=== PATIENT | male | born 1960 | race Caucasian/White ===

== ENCOUNTER 2020-08-28 14:29 | Emergency (ER) | payer BC ==
--- NOTE | 2020-08-28 16:05 | RAD REPORT ---
EXAM DESCRIPTION: RAD - Lumbar Spine 3 Views - 08/28/2020 3:57 pm CLINICAL HISTORY: PAIN Radiculopathy COMPARISON: No comparisons FINDINGS: Vertebral body heights appear maintained. No compression fracture noted. Mild disc thinnin g with small endplate osteophytes at L4-5 and L5-S1. No spondylolysis or spondylolisthesis. IMPRESSION: Mild lower lumbar spondylosis.
--- NOTE | 2020-08-28 16:59 | RAD REPORT ---
EXAM DESCRIPTION: CT - Spine Lumbar Wo Con - 08/28/2020 4:49 pm CLINICAL HISTORY: Radiculopathy. LOWER BACK PAIN COMPARISON: No comparisons TECHNIQUE: Axial noncontrast CT imaging of the lumbar spine was performed with coronal and sagittal re-formatted images. All CT scans are performed using dose optimization technique as appropriate and may include automated exposure control or mA/KV adjustment according to patient size. FINDINGS: No acute lumbar spine fracture seen. No aggressive marrow pattern or malalignment. Paraspinal tissues are normal in thickness. No paraspinal abscess or hematoma seen. Intervertebral disc disease assessment is inherently limited by CT. Within this limitation there is l ikely a disc herniation at L4-5. IMPRESSION: No acute finding evident. Probable herniated disc seen at L4-5. Followup nonemergent MRI imaging of the lumbar spine would be r ecommended.
[2020-08-28] MEDS ORDERED: methocarbamoL 500 MG TAB ONE (17:02)
[2020-08-28] MEDS ORDERED: HYDROCODONE/APAP 7.5/325 MG TAB ONE (17:02)
[2020-08-28] MEDS ORDERED: FAMOTIDINE 20 MG TAB ONE (17:03)
[2020-08-28] MEDS ORDERED: predniSONE 20 MG TAB ONE (17:03)
--- NOTE | 2020-08-28 17:51 | ER ---
Nurse's Notes [facility] Name: Forest Munoz Age: 60 yrs Sex: Male : 1960 Arrival Date: 08/28/2020 Time: 14:30 Bed 6 Private MD: Diagnosis: Low back pain;Spondylolisthesis;Spondylolysis Presentation: 08/28 14:41 Chief complaint: Patient states: low back pain today after doing squats at the gym and sv heard something "pop". Coronavirus screen: Client denies travel out of the [place] in the last 14 days. At this time, the client does not indicate any symptoms associated with coronavirus-19. Ebola Screen: No symptoms or risks identified at this time. Risk Assessment: Do you want to hurt yourself or someone else? Patient reports no desire to harm self or others. Onset of symptoms was August 28, 2020. 14:41 Method Of Arrival: Ambulatory sv 14:41 Acuity: WILVER 4 sv 14:42 Initial Sepsis Screen: Does the patient meet any 2 criteria? No. Patient's initial sv sepsis screen is negative. Does the patient have a suspected source of infection? No. Patient's initial sepsis screen is negative. Triage Assessment: 14:41 General: Appears in no apparent distress. uncomfortable, Behavior is calm, cooperative, sv appropriate for age. Pain: Complains of pain in low back area. Neuro: Level of Consciousness is awake, alert, obeys commands, Oriented to person, place, time, situation, Gait is steady. Respiratory: Respiratory effort is even, unlabored. Historical: - Allergies: 14:41 No Known Allergies; sv - PMHx: 14:41 None; sv - PSHx: 14:41 None; sv - Immunization history:: Client reports receiving the 1st dose of the Covid vaccine. - Social history:: Smoking status: Patient denies any tobacco usage or history of. Screenin:10 Abuse screen: Denies threats or abuse. Denies injuries from another. Nutritional tr6 screening: No deficits noted. Tuberculosis screening: No symptoms or risk factors identified. Fall Risk None identified. Assessment: 15:10 Reassessment: Received VO from [facility] for xray. sv 16:09 General: Appears in no apparent distress. comfortable, well groomed, Behavior is calm, tr6 cooperative, appropriate for age. Pain: Complains of pain in lower back. Neuro: No deficits noted. Cardiovascular: No deficits noted. Respiratory: No deficits noted. GI: No deficits noted. : No deficits noted. EENT: No deficits noted. Derm: No deficits noted. Musculoskeletal: No deficits noted. Vital Signs: 14:42 BP 125 / 64; Pulse 48; Resp 16; Temp 98.7; Pulse Ox 99% ; Weight 85.28 kg; Height 6 ft. sv 4 in. (193.04 cm); Pain 2/10; 14:42 Body Mass Index 22.88 (85.28 kg, 193.04 cm) sv 14:42 when moving-10 sv ED Course: 14:30 Patient arrived in ED. ds1 14:41 Triage completed. sv 14:42 Arm band placed on. sv 15:53 Lumbar Spine (3 Views) XRAY In Process Unspecified. EDMS 16:03 Gerald Rosario MD is Attending Physician. kdr 16:09 Mary Mora RN is Primary Nurse. tr6 16:10 Patient has correct armband on for positive identification. Call light in reach. Door tr6 closed. 16:10 No provider procedures requiring assistance completed. tr6 16:49 CT Lumbar Spine Wo Con In Process Unspecified. EDMS 18:01 Patient did not have IV access during this emergency room visit. tr6 Administered Medications: 16:55 Drug: [place] (HYDROcodone-acetaminophen) (7.5 mg-325 mg) 1 tabs Route: PO; tr6 17:16 Follow up: Response: No adverse reaction; Pain is decreased tr6 16:56 Drug: Pepcid (famotidine) 20 mg Route: PO; tr6 17:17 Follow up: Response: No adverse reaction tr6 16:56 Drug: predniSONE 60 mg Route: PO; tr6 17:17 Follow up: Response: No adverse reaction; Pain is decreased tr6 16:56 Drug: Robaxin (methocarbamol) 750 mg Route: PO; tr6 17:17 Follow up: Response: No adverse reaction; Pain is decreased tr6 Outcome: 17:50 Discharge ordered by . kdr 18:00 Discharged to home ambulatory. tr6 18:00 Condition: stable 18:00 Discharge instructions given to patient, Instructed on discharge instructions, follow up and referral plans. medication usage, safety practices, Demonstrated understanding of instructions, follow-up care, medications, Prescriptions given X 4. 18:07 Patient left the ED. tr6 Signatures: Dispatcher [employer] Brianne Roa RN RN sv Rittger, Kevin, MD MD [facility] Beena Padron ds1 Mary Mora RN RN tr6
--- NOTE | 2020-08-28 17:51 | EDPHYS ---
Physician Documentation [facility] Name: Forest Munoz Age: 60 yrs Sex: Male : 1960 Arrival Date: 08/28/2020 Time: 14:30 Bed 6 Private MD: ED Physician Gerald Rosario HPI: 08/28 16:30 This 60 yrs old Male presents to ER via Ambulatory with complaints of Back kdr Pain. 16:30 The patient presents with pain that is acute, and decreased range of motion, and an kdr injury. The symptoms are located in the low back. Onset: The symptoms/episode began/occurred suddenly, this morning, at 10:30. The pain does not radiate. Associated signs and symptoms: The patient has no apparent associated signs or symptoms. The problem was sustained playing sports, Doing leg presses at the gym. Modifying factors: The patient symptoms are alleviated by remaining still, specific position, standing, Sitting is worst position. Primarily the pain is with transition of positions. Severity of symptoms: At their worst the symptoms were incapacitating, in the emergency department the symptoms are unchanged. The patient has not experienced similar symptoms in the past. The patient has not recently seen a physician. Historical: - Allergies: 14:41 No Known Allergies; sv - PMHx: 14:41 None; sv - PSHx: 14:41 None; sv - Immunization history:: Client reports receiving the 1st dose of the Covid vaccine. - Social history:: Smoking status: Patient denies any tobacco usage or history of. ROS: 16:30 Constitutional: Negative for fever, chills, and weight loss, Eyes: Negative for injury, kdr pain, redness, and discharge, ENT: Negative for injury, pain, and discharge, Neck: Negative for injury, pain, and swelling, Cardiovascular: Negative for chest pain, palpitations, and edema, Respiratory: Negative for shortness of breath, cough, wheezing, and pleuritic chest pain, Abdomen/GI: Negative for abdominal pain, nausea, vomiting, diarrhea, and constipation, : Negative for injury, bleeding, discharge, and swelling, MS/Extremity: Negative for injury and deformity, Skin: Negative for injury, rash, and discoloration, Neuro: Negative for headache, weakness, numbness, tingling, and seizure activity. Psych: Negative for depression, anxiety, suicide ideation, homicidal ideation, and hallucinations, Allergy/Immunology: Negative for hives, rash, and allergies, Endocrine: Negative for neck swelling, polydipsia, polyuria, polyphagia, and marked weight changes, Hematologic/Lymphatic: Negative for swollen nodes, abnormal bleeding, and unusual bruising. 16:30 Back: Positive for injury or acute deformity, decreased range of motion, pain at rest, pain with movement, of the lumbar area. Exam: 16:30 Constitutional: This is a well developed, well nourished patient who is awake, alert, kdr and in no acute distress. Head/Face: Normocephalic, atraumatic. Eyes: Pupils equal round and reactive to light, extra-ocular motions intact. Lids and lashes normal. Conjunctiva and sclera are non-icteric and not injected. Cornea within normal limits. Periorbital areas with no swelling, redness, or edema. Neck: Trachea midline, no thyromegaly or masses palpated, and no cervical lymphadenopathy. Supple, full range of motion without nuchal rigidity, or vertebral point tenderness. No Meningismus. Chest/axilla: Normal chest wall appearance and motion. Nontender with no deformity. No lesions are appreciated. Cardiovascular: Regular rate and rhythm with a normal S1 and S2. No gallops, murmurs, or rubs. Normal PMI, no JVD. No pulse deficits. Respiratory: Lungs have equal breath sounds bilaterally, clear to auscultation and percussion. No rales, rhonchi or wheezes noted. No increased work of breathing, no retractions or nasal flaring. Abdomen/GI: Soft, non-tender, with normal bowel sounds. No distension or tympany. No guarding or rebound. No evidence of tenderness throughout. Skin: Warm, dry with normal turgor. Normal color with no rashes, no lesions, and no evidence of cellulitis. MS/ Extremity: Pulses equal, no cyanosis. Neurovascular intact. Full, normal range of motion. Neuro: Awake and alert, GCS 15, oriented to person, place, time, and situation. Cranial nerves II-XII grossly intact. Motor strength 5/5 in all extremities. Sensory grossly intact. Cerebellar exam normal. Normal gait. Psych: Awake, alert, with orientation to person, place and time. Behavior, mood, and affect are within normal limits. 16:30 Back: pain, that is mild, of the lumbar area, ROM is painful, with flexion, with extension, No pain with twisting of torso only with flexion/extrension. normal spinal alignment noted, CVA tenderness, is absent, vertebral tenderness, is not appreciated. Vital Signs: 14:42 BP 125 / 64; Pulse 48; Resp 16; Temp 98.7; Pulse Ox 99% ; Weight 85.28 kg; Height 6 ft. sv 4 in. (193.04 cm); Pain 2/10; 14:42 Body Mass Index 22.88 (85.28 kg, 193.04 cm) sv 14:42 when moving-10 sv MDM: 16:30 Data reviewed: vital signs, nurses notes, radiologic studies. Counseling: I had a kdr detailed discussion with the patient and/or guardian regarding: the historical points, exam findings, and any diagnostic results supporting the discharge/admit diagnosis, radiology results, the need for outpatient follow up. 17:50 Patient medically screened. kdr 08/28 15:09 Order name: Lumbar Spine (3 Views) XRAY; Complete Time: 16:13 sv 08/28 16:30 Order name: CT Lumbar Spine Wo Con; Complete Time: 17:38 kdr Administered Medications: 16:55 Drug: [place] (HYDROcodone-acetaminophen) (7.5 mg-325 mg) 1 tabs Route: PO; tr6 17:16 Follow up: Response: No adverse reaction; Pain is decreased tr6 16:56 Drug: Pepcid (famotidine) 20 mg Route: PO; tr6 17:17 Follow up: Response: No adverse reaction tr6 16:56 Drug: predniSONE 60 mg Route: PO; tr6 17:17 Follow up: Response: No adverse reaction; Pain is decreased tr6 16:56 Drug: Robaxin (methocarbamol) 750 mg Route: PO; tr6 17:17 Follow up: Response: No adverse reaction; Pain is decreased tr6 Disposition: 08/28/20 17:50 Discharged to Home. Impression: Low back pain, Spondylolisthesis, Spondylolysis. - Condition is Stable. - Discharge Instructions: Musculoskeletal Pain, Back Pain, Adult, [id number], Heat Therapy, [id number], Back Exercises, Back Injury Prevention. - Prescriptions for Ibuprofen 800 mg Oral Tablet - take 1 tablet by ORAL route every 8 hours As needed take with food; 30 tablet. Robaxin 500 mg Oral Tablet - take 2 tablet by ORAL route every 6 hours As needed; 40 tablet. Tylenol- Codeine #3 300-30 mg Oral Tablet - take 2 tablets by ORAL route every 4-6 hours As needed For use at night for breakthrough pain; 12 tablet. Medrol (Ren) 4 mg Oral Tablets, Dose Pack - take 1 tablet by ORAL route as directed - follow package instructions; 1 packet. - Medication Reconciliation Form, Thank You Letter, Prescription Opioid Use form. - Follow up: Private Physician; When: 2 - 3 days; Reason: If symptoms return, Further diagnostic work-up, Recheck today's complaints, Continuance of care, Re-evaluation by your physician. - Problem is new. - Symptoms have improved. Signatures: Dispatcher [employer] Brianne Roa RN RN sv Gerald Rosario MD MD kdr Mary Mora RN RN tr6 Corrections: (The following items were deleted from the chart) 18:07 17:50 08/28/2020 17:50 Discharged to Home. Impression: Low back pain; tr6 Spondylolisthesis; Spondylolysis. Condition is Stable. Forms are Medication Reconciliation Form, Thank You Letter, Antibiotic Education, Prescription Opioid Use. Follow up: Private Physician; When: 2 - 3 days; Reason: If symptoms return, Further diagnostic work-up, Recheck today's complaints, Continuance of care, Re-evaluation by your physician. Problem is new. Symptoms have improved. kdr
[2020-08-28 18:23] VITALS: BP 125/64; TEMP 98.7; O2SAT 99
== END 2020-08-28 18:07 | disposition home or self-care (01) ==
LOC: ER 14:29
DX: M54.5 Low back pain (principal); M43.16 Spondylolisthesis, lumbar region; M43.06 Spondylolysis, lumbar region
CPT/HCPCS: 72100; 72131; 99283; J7512

== ENCOUNTER 2024-08-17 07:25 | Emergency (ER) | payer BC ==
--- NOTE | 2024-08-17 07:45 | EDPHYS ---
Physician Documentation [facility] Name: Forest Munoz Age: 64 yrs Sex: Male : 1960 Arrival Date: 08/17/2024 Time: 07:25 Bed 17 Private MD: ED Physician Bertram Allen HPI: 08/17 07:40 This 64 yrs old Male presents to ER via Ambulatory with complaints of Jaw Pain, Facial rn Swelling. 07:40 Patient reports right jaw pain and dental pain over the last few days. Has appointment rn with dentist. No fever or chills.. Historical: - Allergies: 07:38 Sulfa (Sulfonamide Antibiotics); ss - PMHx: 07:38 Asthma; ED; ss - PSHx: 07:38 None; ss - Infectious Disease History:: Denies. - Social history:: Smoking status: Patient denies any tobacco usage or history of. - Family history:: not pertinent. - Hospitalizations: : No recent hospitalization is reported. ROS: 07:40 Constitutional: Negative for fever, chills, and weight loss, ENT: Positive for dental rn pain on the right posterior lower side Respiratory: Negative for shortness of breath, cough, wheezing, and pleuritic chest pain, Exam: 07:40 Constitutional: This is a well developed, well nourished patient who is awake, alert, rn and in no acute distress. ENT: Poor dentition, no evidence of intraoral abscess or swelling. No buccal abscess or fluctuance. No submandibular swelling or tenderness either. Vital Signs: 07:36 BP 143 / 60; Pulse 60; Resp 16; Pulse Ox 100% on R/A; Weight 92.08 kg; Height 6 ft. 4 ss in. ; Pain 5/10; 07:42 Temp 98.1(O); ss 07:36 Body Mass Index 24.71 (92.08 kg, 193.04 cm) ss 07:36 Pain Scale: Adult ss MDM: 07:31 Medical Screening Exam initiated rn 07:40 Differential diagnosis: dental caries, dental abscess. Data reviewed: vital signs, rn nurses notes, and as a result, I will discharge patient. Counseling: I had a detailed discussion with the patient and/or guardian regarding the historical points, exam findings, and any diagnostic results supporting the discharge/admit diagnosis, the need for outpatient follow up, to return to the emergency department if symptoms worsen or persist or if there are any questions or concerns that arise at home. Special discussion: I discussed with the patient/guardian in detail that at this point there is no indication for admission to the hospital. It is understood, however, that if the symptoms persist or worsen the patient needs to return immediately for re-evaluation. Administered Medications: 07:54 Drug: Clindamycin PO 300 mg PO once Route: PO; aa5 07:54 Follow up: Response: No adverse reaction; Medication administered at discharge. aa5 Disposition Summary: 08/17/24 07:45 Discharge Ordered Notes: Location: Home rn Problem: new rn Symptoms: have improved rn Condition: Stable rn Diagnosis - Dentalgia rn Followup: rn - With: Private Physician - When: As needed - Reason: Recheck today's complaints, Re-evaluation by your physician Discharge Instructions: - Discharge Summary Sheet rn - Dental Pain rn Forms: - Medication Reconciliation Form rn - Antibiotic rn disease management - Prescription Opioid Use rn - Patient Portal Instructions rn - Leadership Thank You Letter rn Prescriptions: - Clindamycin HCl 300 mg Oral Capsule - take 1 capsule ORAL route every 6 hours for 10 days; 40 capsule; Refills: 0, rn Product Selection Permitted Signatures: Bertram Allen MD MD rn Calderon, Audri RN RN aa5 Vee Dotson RN RN
--- NOTE | 2024-08-17 07:45 | ER ---
Nurse's Notes [facility] Name: Forest Munoz Age: 64 yrs Sex: Male : 1960 Arrival Date: 08/17/2024 Time: 07:25 Bed 17 Private MD: Diagnosis: Dentalgia Presentation: 08/17 07:36 Chief complaint: Patient states: dental pain since yesterday, worse today. Coronavirus ss screen: Client denies travel out of the [place] in the last 14 days. Ebola Screen: Patient denies exposure to infectious person. Patient denies travel to an Ebola-affected area in the 21 days before illness onset. Initial Sepsis Screen: Does the patient meet any 2 criteria? No. Patient's initial sepsis screen is negative. Does the patient have a suspected source of infection? No. Patient's initial sepsis screen is negative. Risk Assessment: Do you want to hurt yourself or someone else? Patient reports no desire to harm self or others. Onset of symptoms was August 16, 2024. 07:36 Method Of Arrival: Ambulatory ss 07:36 Acuity: WILVER 5 ss Historical: - Allergies: 07:38 Sulfa (Sulfonamide Antibiotics); ss - PMHx: 07:38 Asthma; ED; ss - PSHx: 07:38 None; ss - Infectious Disease History:: Denies. - Social history:: Smoking status: Patient denies any tobacco usage or history of. - Family history:: not pertinent. - Hospitalizations: : No recent hospitalization is reported. Screenin:42 [facility] ED Fall Risk Assessment (Adult) History of falling in the last 3 months, aa5 including since admission No falls in past 3 months (0 pts) Confusion or Disorientation No (0 pts) Intoxicated or Sedated No (0 pts) Impaired Gait No (0 pts) Mobility Assist Device Used No (0 pt) Altered Elimination No (0 pt) Score/Fall Risk Level 0 - 2 = Low Risk Oriented to surroundings, Maintained a safe environment, Educated pt \T\ family on fall prevention, incl call for assistance when getting out of bed, Assessed \T\ reinforced patient's understanding of fall precautions. Abuse screen: Denies threats or abuse. Nutritional screening: No deficits noted. Tuberculosis screening: No symptoms or risk factors identified. Assessment: 07:42 General: Appears comfortable, Behavior is calm, cooperative. Pain: Complains of pain in aa5 lower right second molar and right jaw. Neuro: Level of Consciousness is awake, alert, obeys commands, Oriented to person, place, time, situation. Cardiovascular: Patient's skin is warm and dry. Respiratory: Airway is patent Respiratory effort is even, unlabored, Respiratory pattern is regular, symmetrical. GI: No signs and/or symptoms were reported involving the gastrointestinal system. : No signs and/or symptoms were reported regarding the genitourinary system. EENT: Reports pain in lower right second molar and right jaw. Derm: Skin is pink, warm \T\ dry. Musculoskeletal: Range of motion: intact in all extremities. 07:54 Reassessment: Patient is alert, oriented x 3, equal unlabored respirations, skin aa5 warm/dry/pink. Vital Signs: 07:36 BP 143 / 60; Pulse 60; Resp 16; Pulse Ox 100% on R/A; Weight 92.08 kg; Height 6 ft. 4 ss in. ; Pain 5/10; 07:42 Temp 98.1(O); ss 07:36 Body Mass Index 24.71 (92.08 kg, 193.04 cm) ss 07:36 Pain Scale: Adult ss ED Course: 07:30 Patient arrived in ED. gm2 07:31 Bertram Allen MD is Attending Physician. rn 07:31 Lisa Mark, SAMI is Primary Nurse. aa5 07:38 Triage completed. ss 07:38 Arm band placed on right wrist. ss 07:42 Patient has correct armband on for positive identification. Bed in low position. Call aa5 light in reach. Side rails up X 1. 07:54 No provider procedures requiring assistance completed. Patient did not have IV access aa5 during this emergency room visit. Administered Medications: 07:54 Drug: Clindamycin PO 300 mg PO once Route: PO; aa5 07:54 Follow up: Response: No adverse reaction; Medication administered at discharge. aa5 Medication: 07:54 VIS not applicable for this client. aa5 Outcome: 07:45 Discharge ordered by . rn 07:52 Discharged to home ambulatory, aa5 07:52 Condition: stable 07:52 Discharge instructions given to patient, Instructed on discharge instructions, follow up and referral plans. medication usage, Demonstrated understanding of instructions, follow-up care, medications, Prescriptions given X 1, 07:55 Patient left the ED. aa5 Signatures: Bertram Allen MD MD rn Calderon, Audri, RN RN aa5 Vee Dotson RN RN Tosin Petersen 2
[2024-08-17 07:59] VITALS: BP 143/60; TEMP 98.1; O2SAT 100
== END 2024-08-17 07:55 | disposition home or self-care (01) ==
LOC: ER 07:25
DX: K08.89 Other specified disorders of teeth and supporting structures (principal)
CPT/HCPCS: 99283